=== PATIENT | male | born 1950 | race Caucasian/White ===

== ENCOUNTER 2016-11-07 17:29 | Emergency (ER) | payer MEDICARE, BC ==
[~2016-11-07] VITALS: Ht 175.3 cm; Wt 86.2 kg
[~2016-11-07 17:29] MED LIST: ALFU10TA10 PO; ALLO100T PO; AMIO200T2 PO; ATOR10TA PO; BENA20TA2 PO; CARV25TA2 PO; CENTRUM SILVER PO; DIGOXIN PO; FURO-151 PO; GLIM1TAB3 PO; HYDR-4077 PO; ISOS30TA47 PO; KLOR-CON PO; MONT10TA22 PO; RIVA15TA PO
--- NOTE | 2016-11-07 18:55 | NUR ---
pt refused blood draw, notified
[2016-11-07] MEDS ORDERED: diphenhydrAMINE 50 MG CAPSULE PO ONE (19:00)
[2016-11-07] MEDS ORDERED: diphenhydrAMINE 50 MG CAPSULE ONE (19:03)
[2016-11-07] MEDS ORDERED: predniSONE 20 MG TABLET PO ONE (20:15)
[2016-11-07] MEDS ORDERED: CEPHALEXIN MONOHYDRATE 500 MG CAPSULE PO ONE (20:15)
[2016-11-07] MEDS ORDERED: CEPHALEXIN MONOHYDRATE 500 MG CAPSULE ONE (20:28)
[2016-11-07] MEDS ORDERED: predniSONE 50 MG TABLET ONE (20:28)
[2016-11-07] MEDS ORDERED: predniSONE 10 MG TABLET ONE (20:28)
--- NOTE | 2016-11-07 20:31 | NUR ---
Patient discharged to home in stable conditon. Written and verbal after care instructions given. Patient verbalizes understanding of instructions.
== END 2016-11-07 20:33 | disposition home or self-care (01) ==
LOC: ER 17:29
DX: L03.116 Cellulitis of left lower limb (principal); L30.8 Other specified dermatitis; I50.9 Heart failure, unspecified; I10 Essential (primary) hypertension; I48.91 Unspecified atrial fibrillation; J44.9 Chronic obstructive pulmonary disease, unspecified; M19.90 Unspecified osteoarthritis, unspecified site; Z79.01 Long term (current) use of anticoagulants
CPT/HCPCS: 93971; 99284; A4663; J7512 ×2; Q0163

== ENCOUNTER 2019-03-29 15:44 | Inpatient (IN) | payer MEDICARE, BC ==
[~2019-03-29] VITALS: Ht 175.3 cm; Wt 94.3 kg
[~2019-03-29 15:44] MED LIST changes: -AMIO200T2 PO; +AMIO200T4 PO; -BENA20TA2 PO; +BENA20TA9 PO; -ISOS30TA47 PO
[2019-03-29] MEDS ORDERED: DULA1.5P SQ (16:12)
[2019-03-29] MEDS ORDERED: INSU300I SQ (16:12)
[2019-03-29] MEDS ORDERED: VANCOMYCIN IV 1,000 MG in IV DEXTROSE 5% 250 ML IV ONE (16:15)
--- NOTE | 2019-03-29 16:18 | NUR ---
NURSING DIRECTOR OF SALES AND MARKETING DAE WAS CALLED TO ARRANGE MIDDLE LINE INSERTION. KEANU IS 1 HOUR.
[2019-03-29 16:41] LABS: BASOPHILS % (AUTO) 0.3 % (0.0-2.0); EOSINOPHILS # (AUTO) 0.1 K/uL (0.0-0.7); HEMATOCRIT 27.7 % (36.7-47.1); LYMPHOCYTES # (AUTO) 0.3 K/uL (20.0-40.0); LYMPHOCYTES % (AUTO) 6.7 % (20.5-51.5); MEAN CORPUSCULAR HEMOGLOBIN 27.8 uug (23.8-33.4); MEAN CORPUSCULAR HGB CONC 32 g/dL (32.5-36.3); MEAN CORPUSCULAR VOLUME 85.7 fL (73.0-96.2); MONOCYTES # (AUTO) 0.3 K/uL (2.0-10.0); MONOCYTES % (AUTO) 6.9 % (0.0-11.0); NEUTROPHILS # (AUTO) 3.7 K/uL (1.8-8.9); NEUTROPHILS % (AUTO) 84.1 % (38.5-71.5); PLATELET COUNT (AUTO) 132 K/uL (152-348); RED BLOOD CELL COUNT(AUTO) 3.24 MIL/uL (4.06-5.63); WHITE BLOOD COUNT (AUTO) 4.4 K/uL (3.6-10.2)
--- NOTE | 2019-03-29 16:47 | NUR ---
PT IS IN ROOM #2B. DR NAVAS EVALUATED THE PT.
[2019-03-29 16:49] LABS: CREATININE 2.3 mg/dL (0.6-1.3); POTASSIUM 4.7 mmol/L (3.5-5.1)
[2019-03-29 17:02] LABS: BILIRUBIN,DIRECT 0.1 mg/dL (0.0-0.2); BILIRUBIN,TOTAL 0.1 mg/dL (0.2-1.0); TOTAL PROTEIN, SERUM 4.2 g/dL (6.4-8.2)
[2019-03-29] MEDS ORDERED: VANCOMYCIN IV 200 ML ONE (18:30)
--- NOTE | 2019-03-29 18:37 | NUR ---
PT WAS TRANSFERED TO TELEMETRY ROOM #302. REPORT WAS GIVEN TO SALESPERSON DRIVER.
[2019-03-29] MEDS ORDERED: DIGOXIN 0.125 MG PO SCH (18:45)
[2019-03-29 19:00] VITALS: BP 114/49
--- NOTE | 2019-03-29 19:00 | NUR ---
PATIENT RECEIVED FROM ED BY MICHAEL TO ROOM 302 WITH DX OF CHF HE IS ALERT AND ORIENTED DENIES PAIN OR DISCOMFORTS AT THIS TIME O2 SAT ON ROOM AIR IS 97 PERCENT.HE HAS A MID LINE GAUGE 18 WITH VANCOMICIN INFUSING FROM THE ED WITH NO S/S OF INFILTERATION ON SITE BILATERAL LOWER EXT SWOLLEN ENCOURAGED TO ELEVATE ON THE PILLOW PATIENT PLACED ON TELE HAS A PACEMAKER PATIENT ORIENTED TO ROOM AND HOSPITAL PROTOCOL WILL ENDORSE ADMISSION TO THE NEXT SHIFT.
--- NOTE | 2019-03-29 19:30 | NUR ---
Patient was seen and examined by Dr. Kowalski.
--- NOTE | 2019-03-29 19:30 | NUR ---
Patient arrived on unit at 1900. Dx: CHF. Patient is A/Ox4. Patient is ambulatory. Belonging list and belongings brought with patient Midline on the JUDD is intact and patent. No signs of acute distress noted. No complaints of pain or SOB. Vitals WNL. Safety measures initiated, bed is low and locked, call light within reach. Will continue with the admission process.
[2019-03-29] MEDS ORDERED: IPRATROPIUM BROMIDE 0.5 MG/2.5 ML NEBU NEB PRN (19:45)
[2019-03-29] MEDS ORDERED: ACETAMINOPHEN 325 MG TABLET PO PRN (19:45)
[2019-03-29] MEDS ORDERED: ALBUTEROL SULFATE 2.5 MG/3 ML NEBU NEB PRN (19:45)
[2019-03-29] MEDS ORDERED: MORPHINE SULFATE 2 MG/1 ML DISP.SYRIN IV PRN (19:45)
[2019-03-29] MEDS ORDERED: ONDANSETRON 4 MG/2 ML VIAL IV PRN (19:45)
[2019-03-29] MEDS ORDERED: BUMETANIDE 1 MG/4 ML VIAL IV SCH (21:00)
[2019-03-29] MEDS: DOCUSATE SODIUM 100 MG CAPSULE PO SCH (21:10)
[2019-03-29] MEDS: ATORVASTATIN 10 MG TABLET PO SCH (21:10)
[2019-03-29] MEDS: ALFUZOSIN HCL 10 MG TAB.SR.24H PO SCH (22:13)
[2019-03-29] MEDS ORDERED: ALFUZOSIN HCL 10 MG TAB.SR.24H PO ONE (22:13)
[2019-03-30 03:48] LABS: *BILIRUBIN,URIN NEGATIVE (NEGATIVE); *BLOOD, URINE NEGATIVE (NEGATIVE); *CLARITY,URINE CLEAR (CLEAR); *COLOR,URINE YELLOW (YELLOW); *KETONES,URINE NEGATIVE (NEGATIVE); *UROBILINOGEN,URINE 0.2 E.U./dl (NORMAL); LEUKOCYTE ESTERASE ,URINE NEGATIVE (NEGATIVE); NITRITE, URINE NEGATIVE (NEGATIVE); UGLUCOSE NEGATIVE (NEGATIVE)
[2019-03-30 04:00] VITALS: BP 98/78
[2019-03-30] MEDS: PANTOPRAZOLE SODIUM 40 MG TABLET.DR PO SCH (06:35)
[2019-03-30 06:45] LABS: BASOPHILS % (AUTO) 0.6 % (0.0-2.0); EOSINOPHILS # (AUTO) 0.1 K/uL (0.0-0.7); EOSINOPHILS % (AUTO) 1.9 % (0.0-7.0); HEMATOCRIT 28.8 % (36.7-47.1); HEMOGLOBIN 9.6 g/dL (12.5-16.3); LYMPHOCYTES # (AUTO) 0.3 K/uL (20.0-40.0); LYMPHOCYTES % (AUTO) 6.6 % (20.5-51.5); MEAN CORPUSCULAR HGB CONC 33 g/dL (32.5-36.3); MEAN CORPUSCULAR VOLUME 84.4 fL (73.0-96.2); MONOCYTES # (AUTO) 0.3 K/uL (2.0-10.0); MONOCYTES % (AUTO) 6.4 % (0.0-11.0); NEUTROPHILS # (AUTO) 4.1 K/uL (1.8-8.9); NEUTROPHILS % (AUTO) 84.5 % (38.5-71.5); PLATELET COUNT (AUTO) 145 K/uL (152-348); RED BLOOD CELL COUNT(AUTO) 3.41 MIL/uL (4.06-5.63); WHITE BLOOD COUNT (AUTO) 4.9 K/uL (3.6-10.2)
[2019-03-30 07:25] LABS: BILIRUBIN,TOTAL 0.2 mg/dL (0.2-1.0); CREATININE 2.3 mg/dL (0.6-1.3); MAGNESIUM 1.8 mg/dL (1.8-2.4); PHOSPHOROUS 4.1 mg/dL (2.5-4.9); POTASSIUM 3.7 mmol/L (3.5-5.1); TOTAL PROTEIN, SERUM 4.5 g/dL (6.4-8.2)
--- NOTE | 2019-03-30 07:25 | NUR ---
DR IRENE HERE TO SEE PATIENT WITH NEW ORDERS AND NOTED PQATIENT OIS ALERT AND ORTIENTED DENIES PAIN OR DISCOMFORTS HE IS ON ROOM SERENA WITH NO SOB STATED LONG HE IS SITTING UP AND NOT LAYING DOWN HE IS FINE RESPIRATORY COLMENARES MID LINE RIGHT ARM REMAIN INTACT CALL LIGHTS AND PERSONAL BELONGINGS PLACED WITHIN EASY REACH WILL CONTINUE TO OBSERVE.
[2019-03-30 07:40] LABS: THYROID STIMULATING HORMONE 5.838 mIU/mL (0.358-3.740)
--- NOTE | 2019-03-30 07:44 | NUR ---
DR BERUMEN HERE TO SEE PATIENT STATED WILL ORDER THORACENTESIS FOR THE PATIENT RELATED TO PLEURAL EFFUSSION AWAITNG FOR RADIOLOGY INPUT.
[2019-03-30] MEDS ORDERED: LACTULOSE 20 G/30 ML LIQUID UDC PO ONE (07:45)
[2019-03-30 08:08] LABS: URIC ACID 5.3 mg/dL (3.5-7.2)
[2019-03-30] MEDS: METOLAZONE 2.5 MG TABLET PO SCH (08:28)
[2019-03-30] MEDS: BUMETANIDE 1 MG/4 ML VIAL IV SCH ×3 (08:28→21:35)
[2019-03-30] MEDS: GLIMEPIRIDE 2 MG TABLET PO SCH (08:29)
[2019-03-30] MEDS: AMIODARONE HCL 200 MG TABLET PO SCH (08:29)
[2019-03-30] MEDS: CARVEDILOL 25 MG TABLET PO SCH ×2 (08:29→17:02)
[2019-03-30] MEDS: DIGOXIN 125 MCG TABLET PO SCH (08:30)
[2019-03-30] MEDS ORDERED: METOLAZONE 5 MG TABLET PO SCH ×2 (09:00)
[2019-03-30] MEDS ORDERED: RIVAROXABAN 10 MG TABLET PO SCH ×2 (09:00)
[2019-03-30] MEDS ORDERED: RIVAROXABAN 15 MG TABLET PO SCH ×2 (09:00→18:00)
[2019-03-30] MEDS: PROTEIN SUPPLEMENT (PROSTAT) 30 ML LIQUID PO SCH ×3 (10:28→17:01)
--- NOTE | 2019-03-30 11:00 | NUR ---
PATIENT SEEN AND EXAMINED BY HECTOR PATIENT HAD ALREADY SIGNED CONSCENT FOR THE THORACENTESIS BUT ANSELMO BOCANEGRA STATED THAT SINCE PATIENT TOOK XARELTO YESTERDAY,HE HAS TENDENCY TO BLEED SHOULD WAIT FOR AT LEAST TOMORROW ULTRASOUND MABLE AND PATIENT AWARE
[2019-03-30 11:02] VITALS: BP 119/65
--- NOTE | 2019-03-30 11:28 | NUR ---
PATIENT SEEN AND EXAMINED BY DR BRAYDON WILSON WITH NEW ORDERS AND NOTED.
[2019-03-30 14:29] LABS: *BILIRUBIN,URIN NEGATIVE (NEGATIVE); *BLOOD, URINE NEGATIVE (NEGATIVE); *CLARITY,URINE CLEAR (CLEAR); *COLOR,URINE LIGHT YELLOW (YELLOW); *KETONES,URINE NEGATIVE (NEGATIVE); *UROBILINOGEN,URINE 0.2 E.U./dl (NORMAL); LEUKOCYTE ESTERASE ,URINE NEGATIVE (NEGATIVE); NITRITE, URINE NEGATIVE (NEGATIVE); PH,URINE 6.5 (5.0-8.0); UGLUCOSE NEGATIVE (NEGATIVE)
[2019-03-30 15:06] LABS: *CREATININE,URINE 14.8 mg/dL (30-125); *URINE TOTAL PROTEIN RANDOM < 6.0 mg/dL (<150/24HR)
[2019-03-30 15:09] VITALS: BP 122/48
--- NOTE | 2019-03-30 17:00 | NUR ---
PER MABLE THE ULTRA SOUND TECH THORACENTESIS WILL BE DONE TOMORROW AT 1100 SO STATED WILL CONFIRM WITH HECTOR BOCANEGRA TOMORROW PRIOR TO PROCEDURE BEING DONE.
[2019-03-30] MEDS: MONTELUKAST SODIUM 10 MG TABLET PO SCH (17:02)
--- NOTE | 2019-03-30 19:30 | NUR ---
RECEIVED REPORT FROM OUTGOING NURSE AT BEDSIDE. PT IS AWAKE, ALERT AND FULLY ORIENTED. VERBALLY RESPONSIVE. PT IS WITH GUEST AT BEDSIDE AND IS IN GOOD SPIRITS. MILD SWELLING ON BILATERAL LOWER EXTREMITIES STILL NOTED. ALL BLOOD THINNERS REMAIN HELD AT THIS TIME D/T POSSIBLE THORACENTESIS IN THE MORNING. PATIENT IS AWARE. CRACKLES HEARD UPON AUSCULTATION, MORE PROMINENTLY ON THE R LUNG. DENIES ANY PAIN OR DISCOMFORT. BREATHING IS EVEN AND UNLABORED, NOT IN ANY ACUTE DISTRESS ON ROOM AIR. PT IS AMBULATORY, REINFORCED FALL PRECAUTIONS. WILL CONTINUE ON TELE MONITORING, REMAINS ON SINUS RHYTHM.
[2019-03-30] MEDS: ATORVASTATIN 10 MG TABLET PO SCH (20:19)
[2019-03-30] MEDS: ALFUZOSIN HCL 10 MG TAB.SR.24H PO SCH (20:19)
[2019-03-30] MEDS: DOCUSATE SODIUM 100 MG CAPSULE PO SCH (20:20)
[2019-03-30 20:45] VITALS: BP 152/50
[2019-03-31 00:30] VITALS: BP 142/54
[2019-03-31 04:03] VITALS: BP 128/78
[2019-03-31 04:39] LABS: *BILIRUBIN,URIN NEGATIVE (NEGATIVE); *BLOOD, URINE NEGATIVE (NEGATIVE); *CLARITY,URINE CLEAR (CLEAR); *COLOR,URINE YELLOW (YELLOW); *KETONES,URINE NEGATIVE (NEGATIVE); *UROBILINOGEN,URINE 0.2 E.U./dl (NORMAL); LEUKOCYTE ESTERASE ,URINE NEGATIVE (NEGATIVE); NITRITE, URINE NEGATIVE (NEGATIVE); PH,URINE 6.5 (5.0-8.0); UGLUCOSE NEGATIVE (NEGATIVE)
[2019-03-31 04:45] LABS: *CREATININE,URINE 38.8 mg/dL (30-125); *URINE TOTAL PROTEIN RANDOM < 6.0 mg/dL (<150/24HR)
[2019-03-31] MEDS: BUMETANIDE 1 MG/4 ML VIAL IV SCH ×3 (05:16→21:06)
--- NOTE | 2019-03-31 06:01 | NUR ---
PATIENT INTERMITTENTLY ASLEEP DURING SHIFT. WITH ONE EPISODE OF HEADACHE HE RATED 3/10 WITH TYLENOL 650 MG GIVEN AND EFFECTIVE. WITH 1200 CC URINE OUTPUT SINCE MIDNIGHT, DAILY WEIGHT MEASURED AT 215 LBS. PATIENT VERBALIZED FEELING BETTER NOW THAT FLUID IS "LEAVING HIS BODY". STRICT I&O DONE AND RECORDED. NO SIGNS OF ACUTE DISTRESS THROUGHOUT ENTIRE SHIFT. MAINTAINED SINUS RHYTHM ON TELE. WILL CONTINUE TO MONITOR.
[2019-03-31] MEDS: PANTOPRAZOLE SODIUM 40 MG TABLET.DR PO SCH (06:20)
[2019-03-31 07:15] LABS: BASOPHILS % (AUTO) 0.4 % (0.0-2.0); EOSINOPHILS # (AUTO) 0.1 K/uL (0.0-0.7); EOSINOPHILS % (AUTO) 2.2 % (0.0-7.0); HEMATOCRIT 27.6 % (36.7-47.1); HEMOGLOBIN 9.2 g/dL (12.5-16.3); LYMPHOCYTES # (AUTO) 0.3 K/uL (20.0-40.0); LYMPHOCYTES % (AUTO) 7.3 % (20.5-51.5); MEAN CORPUSCULAR HEMOGLOBIN 27.8 uug (23.8-33.4); MEAN CORPUSCULAR HGB CONC 33 g/dL (32.5-36.3); MEAN CORPUSCULAR VOLUME 83.3 fL (73.0-96.2); MONOCYTES # (AUTO) 0.3 K/uL (2.0-10.0); MONOCYTES % (AUTO) 7.6 % (0.0-11.0); NEUTROPHILS # (AUTO) 3.7 K/uL (1.8-8.9); NEUTROPHILS % (AUTO) 82.5 % (38.5-71.5); PLATELET COUNT (AUTO) 140 K/uL (152-348); RED BLOOD CELL COUNT(AUTO) 3.32 MIL/uL (4.06-5.63); WHITE BLOOD COUNT (AUTO) 4.5 K/uL (3.6-10.2)
[2019-03-31 07:17] LABS: BILIRUBIN,TOTAL 0.3 mg/dL (0.2-1.0); CREATININE 2.4 mg/dL (0.6-1.3); MAGNESIUM 1.7 mg/dL (1.8-2.4); PHOSPHOROUS 4.7 mg/dL (2.5-4.9); POTASSIUM 3.2 mmol/L (3.5-5.1); TOTAL PROTEIN, SERUM 4.5 g/dL (6.4-8.2)
--- NOTE | 2019-03-31 08:00 | NUR ---
Pt alert and oriented x 4. Discussed plan with patient regarding limiting fluid intake to prevent further congestion and to use urinal for accurate I/O. Pt has diminished lung sounds on right lobe. Pt agreeable with plan of care. Call light is within reach.
[2019-03-31] MEDS: METOLAZONE 2.5 MG TABLET PO SCH (08:51)
[2019-03-31] MEDS: GLIMEPIRIDE 2 MG TABLET PO SCH (08:52)
[2019-03-31] MEDS: AMIODARONE HCL 200 MG TABLET PO SCH (08:52)
[2019-03-31] MEDS: CARVEDILOL 25 MG TABLET PO SCH ×2 (08:53→17:07)
[2019-03-31] MEDS: PROTEIN SUPPLEMENT (PROSTAT) 30 ML LIQUID PO SCH ×3 (08:53→17:08)
[2019-03-31] MEDS ORDERED: POTASSIUM CHLORIDE 20 MEQ TAB.PRT.SR PO ONE (11:00)
[2019-03-31 11:14] VITALS: BP 125/54
--- NOTE | 2019-03-31 12:30 | NUR ---
Pt tolerated right thoracentesis > 1500cc out. Band aid applied on right back will monitor for bleeding.
[2019-03-31] MEDS: MAGNESIUM SULFATE/D5W 100 ML IV SCH ×2 (13:52→15:59)
[2019-03-31] MEDS ORDERED: MAGNESIUM HYDROXIDE 30 ML LIQUID UDC PO PRN (15:15)
[2019-03-31 15:25] VITALS: BP 113/42
[2019-03-31] MEDS: MONTELUKAST SODIUM 10 MG TABLET PO SCH (17:07)
--- NOTE | 2019-03-31 18:30 | NUR ---
Pt is in no acute distress. Pt denies any sob. Right thoracentesis site has no bleeding noted. Call light is within reach.
--- NOTE | 2019-03-31 19:00 | NUR ---
PATIENT RECEIVED ALERT AND SLEEPING USING CPAP MACHINE, PATIENT MIDLINE IS INTACT AND PATENT. VERY COOPERATIVE AND PLEASANT. NO COMPLAINTS OF SOB , PAIN , CHEST PAIN. CALL LIGHT WITHIN REACH, WILL CONTINUE TO MONITOR.
[2019-03-31 20:00] VITALS: BP 122/49
[2019-03-31] MEDS: DOCUSATE SODIUM 100 MG CAPSULE PO SCH (20:56)
[2019-03-31] MEDS: ATORVASTATIN 10 MG TABLET PO SCH (20:56)
[2019-03-31] MEDS: ALFUZOSIN HCL 10 MG TAB.SR.24H PO SCH (20:56)
[2019-04-01] VITALS: BP 149/59
[2019-04-01 04:00] VITALS: BP 100/40
[2019-04-01] MEDS: BUMETANIDE 1 MG/4 ML VIAL IV SCH ×3 (06:01→21:12)
[2019-04-01] MEDS: PANTOPRAZOLE SODIUM 40 MG TABLET.DR PO SCH (06:04)
--- NOTE | 2019-04-01 07:20 | NUR ---
Patient received on bed, asleep, no acute distress noted. on tele AV pacing. AAOx4 no SOB noted at this time. comfort measures provided. call light within reach. will continue to monitor closely.
--- NOTE | 2019-04-01 07:35 | NUR ---
PATIENT SLEPT INTERMITENTLY WITH CPAP MACHINE, PATIENT MIDLINE IS INTACT AND PATENT. NO COMPLAINTS OF SOB , PAIN , CHEST PAIN. MANAGER MEDICAL WRITING INTACT, WITH PACEMAKER, PACING NORMAL SINUS WITH 62 HR CALL LIGHT WITHIN REACH, WILL CONTINUE TO MONITOR. ENDORSED TO AM SHIFT.
[2019-04-01] MEDS: PROTEIN SUPPLEMENT (PROSTAT) 30 ML LIQUID PO SCH ×3 (08:00→17:00)
[2019-04-01] MEDS: CARVEDILOL 25 MG TABLET PO SCH ×2 (08:00→17:41)
[2019-04-01 08:06] LABS: ALPHA-1-GLOBULIN 0.2 g/dL (0.0-0.4); ALPHA-2-GLOBULIN 0.6 g/dL (0.4-1.0); BETA GLOBULIN 0.7 g/dL (0.7-1.3); GAMMA GLOBULIN 0.4 g/dL (0.4-1.8); M-SPIKE Not Observed g/dL (Not Observed)
[2019-04-01] MEDS: GLIMEPIRIDE 2 MG TABLET PO SCH (08:53)
[2019-04-01] MEDS: METOLAZONE 2.5 MG TABLET PO SCH (08:53)
[2019-04-01] MEDS: DIGOXIN 125 MCG TABLET PO SCH (08:54)
[2019-04-01] MEDS: AMIODARONE HCL 200 MG TABLET PO SCH (09:00)
[2019-04-01 09:55] LABS: BASOPHILS % (AUTO) 0.6 % (0.0-2.0); EOSINOPHILS # (AUTO) 0.1 K/uL (0.0-0.7); EOSINOPHILS % (AUTO) 1.7 % (0.0-7.0); HEMATOCRIT 28.1 % (36.7-47.1); HEMOGLOBIN 9.1 g/dL (12.5-16.3); LYMPHOCYTES # (AUTO) 0.2 K/uL (20.0-40.0); LYMPHOCYTES % (AUTO) 5.4 % (20.5-51.5); MEAN CORPUSCULAR HEMOGLOBIN 27.4 uug (23.8-33.4); MEAN CORPUSCULAR HGB CONC 32 g/dL (32.5-36.3); MEAN CORPUSCULAR VOLUME 85.3 fL (73.0-96.2); MONOCYTES # (AUTO) 0.3 K/uL (2.0-10.0); MONOCYTES % (AUTO) 6.4 % (0.0-11.0); NEUTROPHILS # (AUTO) 3.9 K/uL (1.8-8.9); NEUTROPHILS % (AUTO) 85.9 % (38.5-71.5); PLATELET COUNT (AUTO) 121 K/uL (152-348); WHITE BLOOD COUNT (AUTO) 4.6 K/uL (3.6-10.2)
--- NOTE | 2019-04-01 09:59 | NUR ---
PATIENT'S HR 57, HELD AMIODARONE 200MG. PT. IN STABLE CONDITION. WILL CONTINUE TO MONITOR CLOSELY.
[2019-04-01 10:04] LABS: CREATININE 2.4 mg/dL (0.6-1.3); POTASSIUM 3.3 mmol/L (3.5-5.1)
[2019-04-01 11:19] VITALS: BP 119/43
[2019-04-01 12:08] VITALS: BP 120/58
[2019-04-01] MEDS: SPIRONOLACTONE 25 MG TABLET PO SCH (12:11)
[2019-04-01] MEDS ORDERED: POTASSIUM CHLORIDE 20 MEQ POWDER PACKET PO ONE (14:45)
[2019-04-01 15:06] VITALS: BP 123/52
[2019-04-01] MEDS: MONTELUKAST SODIUM 10 MG TABLET PO SCH (17:37)
[2019-04-01] MEDS ORDERED: RIVAROXABAN 15 MG TABLET PO SCH (18:00)
[2019-04-01 20:00] VITALS: BP 124/59
[2019-04-01] MEDS: DOCUSATE SODIUM 100 MG CAPSULE PO SCH (21:11)
[2019-04-01] MEDS: ALFUZOSIN HCL 10 MG TAB.SR.24H PO SCH (21:11)
[2019-04-01] MEDS: ATORVASTATIN 10 MG TABLET PO SCH (21:11)
[2019-04-02] VITALS: BP 105/44
[2019-04-02 04:00] VITALS: BP 131/61
--- NOTE | 2019-04-02 05:21 | NUR ---
Patient rested well in between care; no acute distress; needs attended;on own cpap; made comfortable. continue plan of care; continue to monitor.
[2019-04-02 06:35] LABS: BASOPHILS % (AUTO) 0.6 % (0.0-2.0); EOSINOPHILS # (AUTO) 0.1 K/uL (0.0-0.7); EOSINOPHILS % (AUTO) 1.7 % (0.0-7.0); HEMATOCRIT 28.4 % (36.7-47.1); HEMOGLOBIN 9.1 g/dL (12.5-16.3); LYMPHOCYTES # (AUTO) 0.3 K/uL (20.0-40.0); LYMPHOCYTES % (AUTO) 7.1 % (20.5-51.5); MEAN CORPUSCULAR HEMOGLOBIN 28.1 uug (23.8-33.4); MEAN CORPUSCULAR HGB CONC 32 g/dL (32.5-36.3); MEAN CORPUSCULAR VOLUME 87.2 fL (73.0-96.2); MONOCYTES # (AUTO) 0.3 K/uL (2.0-10.0); MONOCYTES % (AUTO) 7.6 % (0.0-11.0); NEUTROPHILS # (AUTO) 3.8 K/uL (1.8-8.9); PLATELET COUNT (AUTO) 123 K/uL (152-348); RED BLOOD CELL COUNT(AUTO) 3.25 MIL/uL (4.06-5.63); WHITE BLOOD COUNT (AUTO) 4.6 K/uL (3.6-10.2)
[2019-04-02 06:43] LABS: CREATININE 2.4 mg/dL (0.6-1.3); POTASSIUM 3.7 mmol/L (3.5-5.1)
[2019-04-02] MEDS: PANTOPRAZOLE SODIUM 40 MG TABLET.DR PO SCH (06:50)
--- NOTE | 2019-04-02 08:00 | NUR ---
seen by manager ambulatory and hospitalist, d plan dc today with home health
[2019-04-02] MEDS: GLIMEPIRIDE 2 MG TABLET PO SCH (08:10)
[2019-04-02] MEDS: METOLAZONE 2.5 MG TABLET PO SCH (08:10)
[2019-04-02] MEDS: AMIODARONE HCL 200 MG TABLET PO SCH (08:12)
[2019-04-02 08:13] VITALS: BP 127/50
[2019-04-02] MEDS: PROTEIN SUPPLEMENT (PROSTAT) 30 ML LIQUID PO SCH (08:13)
[2019-04-02] MEDS: SPIRONOLACTONE 25 MG TABLET PO SCH (08:13)
[2019-04-02] MEDS: CARVEDILOL 25 MG TABLET PO SCH (08:13)
[2019-04-02] MEDS ORDERED: FUROSEMIDE 40 MG TABLET PO SCH (09:00)
[2019-04-02] MEDS ORDERED: Metolazone PO (09:29)
[2019-04-02] MEDS ORDERED: FURO40TA5 PO (09:29)
--- NOTE | 2019-04-02 10:13 | NUR ---
discharged home with home health via private car accompanied by . RX AND follow-up instruction given
== END 2019-04-02 10:20 | disposition home health service (06) | DRG 291 ==
LOC: ER 15:44 → TELE3 18:21
PROVIDERS: ADMIT Internal Medicine; ATTEND Internal Medicine
PROC: 05H933Z Insertion of Infusion Device into Right Brachial Vein, Percutaneous Approach (ICD-10-PCS; principal; 2019-03-29)
PROC: 0W993ZX Drainage of Right Pleural Cavity, Percutaneous Approach, Diagnostic (ICD-10-PCS; 2019-03-31)
DX: I13.0 Hypertensive heart and chronic kidney disease with heart failure and stage 1 through stage 4 chronic kidney disease, or unspecified chronic kidney disease (principal); I50.23 Acute on chronic systolic (congestive) heart failure; E43 Unspecified severe protein-calorie malnutrition; J91.8 Pleural effusion in other conditions classified elsewhere; J96.11 Chronic respiratory failure with hypoxia; D68.59 Other primary thrombophilia; J98.11 Atelectasis; R18.8 Other ascites; E87.0 Hyperosmolality and hypernatremia; E66.2 Morbid (severe) obesity with alveolar hypoventilation; E11.22 Type 2 diabetes mellitus with diabetic chronic kidney disease; N18.9 Chronic kidney disease, unspecified; I48.0 Paroxysmal atrial fibrillation; I27.20 Pulmonary hypertension, unspecified; I42.9 Cardiomyopathy, unspecified; I87.303 Chronic venous hypertension (idiopathic) without complications of bilateral lower extremity; J44.9 Chronic obstructive pulmonary disease, unspecified; M10.9 Gout, unspecified; K80.20 Calculus of gallbladder without cholecystitis without obstruction; I87.2 Venous insufficiency (chronic) (peripheral); E11.42 Type 2 diabetes mellitus with diabetic polyneuropathy; Z68.30 Body mass index [BMI] 30.0-30.9, adult; Z91.11 Patient's noncompliance with dietary regimen; Z86.74 Personal history of sudden cardiac arrest; Z87.891 Personal history of nicotine dependence; Z95.810 Presence of automatic (implantable) cardiac defibrillator; D69.6 Thrombocytopenia, unspecified; D63.8 Anemia in other chronic diseases classified elsewhere; M19.90 Unspecified osteoarthritis, unspecified site; N50.89 Other specified disorders of the male genital organs; Z79.01 Long term (current) use of anticoagulants; Z79.4 Long term (current) use of insulin; N40.1 Benign prostatic hyperplasia with lower urinary tract symptoms; M89.8X9 Other specified disorders of bone, unspecified site; Z79.899 Other long term (current) drug therapy; I25.10 Atherosclerotic heart disease of native coronary artery without angina pectoris; E87.6 Hypokalemia; E78.5 Hyperlipidemia, unspecified
CPT/HCPCS: 32555; 36415; 70030-TC; 71045; 71250; 83550; 83615; 83735; 83970; 83986; 84100; 84155; 84156; 84165; 84300; 84443; 84550; 85025; 85610; 85730; 87070; 87205; 93005; 93307; A4217; A4663; G0378; J3370; J3475; J3490; J8499

== ENCOUNTER 2019-08-23 09:44 | Inpatient (IN) | payer BC, MEDICARE ==
[~2019-08-23] VITALS: Ht 175.3 cm; Wt 90.7 kg
[~2019-08-23 09:44] MED LIST changes: -BENA20TA9 PO; +DULA1.5P SQ; -FURO-151 PO; +FURO40TA5 PO; +GLIM1TAB18 PO; -GLIM1TAB3 PO; -HYDR-4077 PO; +INSU300I SQ; +Metolazone PO
--- NOTE | 2019-08-23 10:15 | NUR ---
Dr Mackay at the bedside for MSE.
[2019-08-23] MEDS ORDERED: PIPERACILLIN SODIUM/TAZOBACTAM 3.375 G in IV DEXTROSE 5% 50 ML IV ONE (11:30)
[2019-08-23] MEDS ORDERED: PIPERACILLIN/TAZOBACTAM/D5W 50 ML IV ONE (11:42)
[2019-08-23 11:58] LABS: CARBON DIOXIDE 34 mmol/L (21-32); CHLORIDE 105 mmol/L (98-107); CREATININE 2.3 mg/dL (0.6-1.3); GLUCOSE 103 mg/dL (74-106); POTASSIUM 3.2 mmol/L (3.5-5.1)
[2019-08-23 12:02] LABS: UREA NITROGEN, BLOOD 81 mg/dL (7-18)
[2019-08-23 12:06] LABS: BASOPHILS # (AUTO) 0.1 K/uL (0.0-8.0); BASOPHILS % (AUTO) 0.9 % (0.0-2.0); EOSINOPHILS # (AUTO) 0.1 K/uL (0.0-0.7); EOSINOPHILS % (AUTO) 2.1 % (0.0-7.0); HEMATOCRIT 31.5 % (36.7-47.1); HEMOGLOBIN 10.2 g/dL (12.5-16.3); LYMPHOCYTES # (AUTO) 0.4 K/uL (20.0-40.0); MEAN CORPUSCULAR HEMOGLOBIN 26.8 uug (23.8-33.4); MEAN CORPUSCULAR HGB CONC 32 g/dL (32.5-36.3); MONOCYTES # (AUTO) 0.5 K/uL (2.0-10.0); MONOCYTES % (AUTO) 7.6 % (0.0-11.0); NEUTROPHILS # (AUTO) 5.6 K/uL (1.8-8.9); NEUTROPHILS % (AUTO) 83.4 % (38.5-71.5); PLATELET COUNT (AUTO) 180 K/uL (152-348); WHITE BLOOD COUNT (AUTO) 6.7 K/uL (3.6-10.2)
[2019-08-23 12:10] LABS: ALANINE AMINOTRANSFERASE 16 U/L (16-63); ALKALINE PHOSPHATASE 102 U/L (50-136); ASPARTATE AMINOTRANSFERASE 24 U/L (15-37); BILIRUBIN,DIRECT 0.1 mg/dL (0.0-0.2); BILIRUBIN,TOTAL 0.3 mg/dL (0.2-1.0); TOTAL PROTEIN, SERUM 5.2 g/dL (6.4-8.2)
--- NOTE | 2019-08-23 12:28 | NUR ---
ER spoke to admiting MD, Dr Green for TELE admit.
--- NOTE | 2019-08-23 12:54 | NUR ---
Lunch tray provided, pt ate w/ great appetite.
[2019-08-23] MEDS ORDERED: diphenhydrAMINE 50 MG/1 ML VIAL IV ONE (13:00)
[2019-08-23] MEDS ORDERED: diphenhydrAMINE 50 MG/1 ML VIAL ONE (13:05)
--- NOTE | 2019-08-23 13:37 | NUR ---
Patient is resting comfortably in bed with eyes closed, NAD noted.
--- NOTE | 2019-08-23 14:14 | NUR ---
Asked patient several times to please provide up-to-date medication list. He himself does not know which medications he is taking. He insisted he would have his send them to him and he would relay to me. I followed up with him an hour later; patient sternly stated he'd let me know when he has the information. No information provided.
--- NOTE | 2019-08-23 15:21 | NUR ---
LIST OF MEDICATIONS RECONCILED WITH PATIENT BEST HE KNOWS. PT STATED HIS WILL BE IN LATER TO VERIFY LIST.
[2019-08-23] MEDS ORDERED: FURO40TA5 PO (15:41)
[2019-08-23] MEDS ORDERED: ISOS30TA6 PO (15:41)
[2019-08-23] MEDS ORDERED: FURO80TA3 PO (15:41)
[2019-08-23] MEDS ORDERED: HYDR-4077 PO (15:41)
--- NOTE | 2019-08-23 16:15 | NUR ---
RECEIVED PATIENT 69 YEARS OLD MALE FROM THE ED WITH DX OF PNA PLACED INTO BED FIXED AND MADE COMFORTABLE PATIENT IS ALERT AND ORIENTED DENIES PAIN OR DISCOMFORTS AT THIS TIME ON ROOM AIR WITH NO SHORTNESS OF BREATH AT THIS TIME BOTH EYES ARE RED PATIENT STATED THAT IT IS ITCHY DR MANE NOTIFIED STATED WILL PLACE ORDERS.
[2019-08-23 16:18] VITALS: BP 143/60
[2019-08-23] MEDS ORDERED: MAGNESIUM HYDROXIDE 30 ML LIQUID UDC PO PRN (17:15)
[2019-08-23] MEDS ORDERED: HYDROCODONE/APAP 5-325MG TABLET PO PRN (17:15)
[2019-08-23] MEDS ORDERED: ZOLPIDEM 5 MG TABLET PO PRN (17:15)
[2019-08-23] MEDS ORDERED: ONDANSETRON 4 MG/2 ML VIAL IV PRN (17:15)
[2019-08-23] MEDS ORDERED: ACETAMINOPHEN 325 MG TABLET PO PRN (17:15)
[2019-08-23] MEDS ORDERED: Z GUARD REMEDY PASTE 57 GM TUBE TOP PRN (17:15)
[2019-08-23] MEDS ORDERED: PIPERACILLIN SODIUM/TAZOBACTAM 3.375 G in IV DEXTROSE 5% 50 ML IV SCH (18:00)
--- NOTE | 2019-08-23 18:00 | NUR ---
REMAIN NON IVF AND IV ATB ORDERED WITH NO ADVERSE OR ALLERGIC REACTIONS AT THIS TIME WILL CONTINUE TO OBSERVE.
[2019-08-23] MEDS: IV 1/2NS 1000 ML 1,000 ML IV PRN (18:15)
[2019-08-23] MEDS: PIPERACILLIN/TAZOBACTAM/D5W 3.375 G in IV DEXTROSE 5% 50 ML IV SCH (18:24)
--- NOTE | 2019-08-23 20:00 | NUR ---
RECEIVED PATIENT AWAKE IN BED BED. A/O X4. C/O DISCOMFORT IN BILATERAL EYES, NOTED TO BE RED AND SWOLLEN. WAITING FOR PHARMACY TO BRING UP EYE DROPS, WILL ADMINISTER PER MD ORDER. PATIENT DENIES ANY OTHER PAIN OR DISCOMFORT. NO RESP. DISTRESS NOTED. VSS. IVF INFUSING WELL TO LEFT AC #20 GAUGE AND PATIENT ALSO RECEIVING IV ATB. CALL LIGHT IN REACH. ALL NEEDS ATTENDED. WILL CONTINUE TO MONITOR AND ASSESS.
[2019-08-23] MEDS: prednisoLONE ACET 1% OPHT DROP 5 ML BOTTLE EACHEYE PRN (20:02)
--- NOTE | 2019-08-23 20:05 | NUR ---
PATIENT GIVEN EYE DROPS ORDERED PRN. WILL CONTINUE TO MONITOR.
[2019-08-23 20:29] VITALS: BP 90/63
--- NOTE | 2019-08-23 21:00 | NUR ---
URINE SENT TO LAB FOR UA/CULTURE. WAITING FOR MD TO RECONCILE MEDS. PATIENT STATED, "RELIEF" FROM EYE DROPS, EFFECTIVE. WILL CONTINUE TO MONITOR AND ASSESS.
[2019-08-23 21:13] LABS: *BILIRUBIN,URIN NEGATIVE (NEGATIVE); *BLOOD, URINE NEGATIVE (NEGATIVE); *CLARITY,URINE CLEAR (CLEAR); *COLOR,URINE YELLOW (YELLOW); *KETONES,URINE NEGATIVE (NEGATIVE); *UROBILINOGEN,URINE 0.2 E.U./dl (NORMAL); LEUKOCYTE ESTERASE ,URINE NEGATIVE (NEGATIVE); NITRITE, URINE NEGATIVE (NEGATIVE); UGLUCOSE NEGATIVE (NEGATIVE)
--- NOTE | 2019-08-23 22:00 | NUR ---
PATIENT REFUSED TO WEAR C-PAP.
--- NOTE | 2019-08-23 22:15 | NUR ---
DR. MANE CALLED FOR RECONCILIATION OF HOME MEDS. PATIENT NOTIFIED AND VERBALIZED UNDERSTANDING.
[2019-08-23] MEDS ORDERED: CARVEDILOL 25 MG TABLET PO SCH (23:45)
[2019-08-23] MEDS: ATORVASTATIN 10 MG TABLET PO SCH (23:45)
[2019-08-23] MEDS: POTASSIUM CHLORIDE 20 MEQ TAB.PRT.SR PO SCH (23:45)
[2019-08-23] MEDS: FUROSEMIDE 40 MG TABLET PO SCH (23:45)
[2019-08-23] MEDS: MONTELUKAST SODIUM 10 MG TABLET PO SCH (23:45)
[2019-08-23] MEDS ORDERED: hydrALAZINE HCL 50 MG TABLET PO SCH (23:45)
[2019-08-23] MEDS: ZOLPIDEM 5 MG TABLET PO PRN (23:49)
--- NOTE | 2019-08-24 | NUR ---
PATIENT AWAKE IN BED. REQUESTING FOR SLEEPING PILL. PATIENT GIVEN AMBIEN 5MG PO PRN FOR SLEEP ORDERED. PATIENT INFORMED THAT HOME MEDS WERE RECONCILED, WILL START IN AM. MD AWARE. ALL NEEDS ATTENDED.
[2019-08-24] MEDS ORDERED: INSULIN REGULAR, HUMAN 300 UNITS/3 ML VIAL SQ PRN (00:45)
[2019-08-24] MEDS ORDERED: DEXTROSE 50% 50 ML DISP.SYRIN IV PRN (00:45)
[2019-08-24] MEDS: PIPERACILLIN/TAZOBACTAM/D5W 3.375 G in IV DEXTROSE 5% 50 ML IV SCH ×3 (01:09→17:16)
--- NOTE | 2019-08-24 06:01 | NUR ---
PATIENT AWAKE IN BED. SLEPT AT INTERVALS. DENIES PAIN OR DISCOMFORT. IVF INFUSING WELL ORDERED. VSS. CALL LIGHT IN REACH. ALL NEEDS ATTENDED. WILL CONTINUE TO MONITOR AND ASSESS.
[2019-08-24 06:34] VITALS: BP 121/49
[2019-08-24] MEDS: BLOOD SUGAR DIAGNOSTIC 1 EACH STRIP VI SCH ×4 (06:36→21:04)
[2019-08-24 07:22] LABS: BASOPHILS # (AUTO) 0.1 K/uL (0.0-8.0); BASOPHILS % (AUTO) 1.3 % (0.0-2.0); EOSINOPHILS # (AUTO) 0.2 K/uL (0.0-0.7); EOSINOPHILS % (AUTO) 2.4 % (0.0-7.0); HEMATOCRIT 30.4 % (36.7-47.1); HEMOGLOBIN 9.8 g/dL (12.5-16.3); LYMPHOCYTES # (AUTO) 0.5 K/uL (20.0-40.0); LYMPHOCYTES % (AUTO) 7.5 % (20.5-51.5); MEAN CORPUSCULAR HEMOGLOBIN 26.8 uug (23.8-33.4); MEAN CORPUSCULAR HGB CONC 32 g/dL (32.5-36.3); MEAN CORPUSCULAR VOLUME 82.7 fL (73.0-96.2); MONOCYTES # (AUTO) 0.6 K/uL (2.0-10.0); MONOCYTES % (AUTO) 8.9 % (0.0-11.0); NEUTROPHILS # (AUTO) 5.1 K/uL (1.8-8.9); NEUTROPHILS % (AUTO) 79.9 % (38.5-71.5); PLATELET COUNT (AUTO) 192 K/uL (152-348); RED BLOOD CELL COUNT(AUTO) 3.67 MIL/uL (4.06-5.63); WHITE BLOOD COUNT (AUTO) 6.4 K/uL (3.6-10.2)
--- NOTE | 2019-08-24 07:30 | NUR ---
RECEIVED PATIENT IN BED AWAKE ALERT AND ORIENTED DENIES PAIN OR DISCOMFORTS AT THIS TIME REMAIN ON IVF AND IV ATB ORDERED WITH NO ADVERSE OR ALLERGIC REACTIONS AT THIS TIME.ON ROOM AIR WITH NO SOB CALL LIGHTS AND PERSONAL BELONGINGS ARE WITHIN EASY REACH MADE COMFORTABLE WILL CONTINUE TO OBSERVE.
[2019-08-24 07:36] LABS: CARBON DIOXIDE 33 mmol/L (21-32); CHLORIDE 105 mmol/L (98-107); CREATININE 2.2 mg/dL (0.6-1.3); GLUCOSE 106 mg/dL (74-106); MAGNESIUM 1.7 mg/dL (1.8-2.4); PHOSPHOROUS 3.1 mg/dL (2.5-4.9); POTASSIUM 3.5 mmol/L (3.5-5.1); UREA NITROGEN, BLOOD 70 mg/dL (7-18)
[2019-08-24 07:49] LABS: THYROID STIMULATING HORMONE 4.684 mIU/mL (0.358-3.740)
[2019-08-24 07:54] LABS: CHOLESTEROL 160 mg/dL (<200); HDL CHOLESTEROL 31 mg/dL (40-60); TRIGLYCERIDES 209 MG/DL (30-150)
[2019-08-24] MEDS: IV 1/2NS 1000 ML 1,000 ML IV PRN (08:21)
[2019-08-24] MEDS: AMIODARONE HCL 200 MG TABLET PO SCH (08:23)
[2019-08-24] MEDS: hydrALAZINE HCL 50 MG TABLET PO SCH ×2 (08:24→20:48)
[2019-08-24] MEDS: MULTIVITAMINS,THERAPEUTIC TABLET PO SCH (08:24)
[2019-08-24] MEDS: POTASSIUM CHLORIDE 20 MEQ TAB.PRT.SR PO SCH ×2 (08:24→20:48)
[2019-08-24] MEDS: ISOSORBIDE MONONITRATE 30 MG TAB.SR.24H PO SCH (08:24)
[2019-08-24] MEDS: FUROSEMIDE 40 MG TABLET PO SCH ×2 (08:24→17:16)
[2019-08-24] MEDS: CARVEDILOL 25 MG TABLET PO SCH ×2 (08:25→17:17)
[2019-08-24] MEDS: prednisoLONE ACET 1% OPHT DROP 5 ML BOTTLE EACHEYE PRN ×3 (08:28→21:03)
--- NOTE | 2019-08-24 08:31 | NUR ---
PATIENT REFUSED [facility] STATED TAKES AT NITE ONLY WILL CALL PHARMACY TO CHANGE TIMING TO BEDTIME DOSING
[2019-08-24] MEDS ORDERED: INSULIN GLARGINE,HUM 300 UNITS/3 ML CARTRIDGE SQ SCH ×2 (09:00→21:00)
[2019-08-24] MEDS ORDERED: ALLOPURINOL 100 MG TABLET PO SCH ×2 (09:00)
[2019-08-24] MEDS ORDERED: MAGNESIUM SULFATE/D5W 100 ML IV SCH (09:15)
--- NOTE | 2019-08-24 09:25 | NUR ---
MAG LEVEL IS 1.7 WITH REPLACEMENT ORDERS FROM ESTHER PAUL NP AND NOTED
[2019-08-24] MEDS: ALLOPURINOL 300 MG TABLET PO SCH (09:52)
[2019-08-24 11:27] VITALS: BP 110/50
[2019-08-24] MEDS: INSULIN REGULAR, HUMAN 300 UNIT/3 ML VIAL SQ PRN ×2 (12:06→16:39)
--- NOTE | 2019-08-24 14:50 | NUR ---
PATIENT COMPLAINING EYES ARE CRUSTY STICKY AND GLUED TOGHETER WANTS SOME OINTMENT SO NGOC PAUL CALLED WITH NEW ORDER AND NOTED.
[2019-08-24 15:57] VITALS: BP 120/56
[2019-08-24] MEDS: MINERAL OIL/PETROLAT OPHT OINT 3.5 GM TUBE EACHEYE PRN ×2 (16:11→21:47)
[2019-08-24] MEDS ORDERED: RIVAROXABAN 15 MG TABLET PO SCH (17:00)
[2019-08-24] MEDS: MONTELUKAST SODIUM 10 MG TABLET PO SCH (17:16)
--- NOTE | 2019-08-24 19:30 | NUR ---
RECEIVED PT AWAKE, ALERT AND ORIENTEDX4. PT IN NO ACUTE DISTRESS. IV INTACT. SAFETY AND COMFORT PROVIDED. ALL NEEDS ARE MET. WILL CONTINUE TO MONITOR.
[2019-08-24 20:31] VITALS: BP 116/59
[2019-08-24] MEDS: ATORVASTATIN 10 MG TABLET PO SCH (20:48)
[2019-08-24] MEDS: ZOLPIDEM 5 MG TABLET PO PRN (22:03)
[2019-08-25] MEDS: IV 1/2NS 1000 ML 1,000 ML IV PRN (00:46)
[2019-08-25] MEDS: PIPERACILLIN/TAZOBACTAM/D5W 3.375 G in IV DEXTROSE 5% 50 ML IV SCH ×2 (01:08→10:01)
--- NOTE | 2019-08-25 02:35 | NUR ---
HANDS OFF REPORT TO SUSIE MCMANUS. PT IN NO ACUTE DISTRESS. IV INTACT. SAFETY AND COMFORT PROVIDED. WILL CONTINUE TO MONITOR.
[2019-08-25 05:45] VITALS: BP 105/62
[2019-08-25 07:39] LABS: BASOPHILS % (AUTO) 0.8 % (0.0-2.0); EOSINOPHILS # (AUTO) 0.2 K/uL (0.0-0.7); EOSINOPHILS % (AUTO) 3.2 % (0.0-7.0); HEMATOCRIT 29.6 % (36.7-47.1); HEMOGLOBIN 9.6 g/dL (12.5-16.3); LYMPHOCYTES # (AUTO) 0.4 K/uL (20.0-40.0); LYMPHOCYTES % (AUTO) 7.2 % (20.5-51.5); MEAN CORPUSCULAR HEMOGLOBIN 26.8 uug (23.8-33.4); MEAN CORPUSCULAR HGB CONC 32 g/dL (32.5-36.3); MEAN CORPUSCULAR VOLUME 82.9 fL (73.0-96.2); MONOCYTES # (AUTO) 0.5 K/uL (2.0-10.0); MONOCYTES % (AUTO) 8.8 % (0.0-11.0); NEUTROPHILS # (AUTO) 4.1 K/uL (1.8-8.9); PLATELET COUNT (AUTO) 178 K/uL (152-348); RED BLOOD CELL COUNT(AUTO) 3.57 MIL/uL (4.06-5.63); WHITE BLOOD COUNT (AUTO) 5.2 K/uL (3.6-10.2)
--- NOTE | 2019-08-25 07:40 | NUR ---
RECEIVED PATIENT IN BED, AWAKE, AOX4. PATIENT DOES NOT HAVE IV ACCESS AT THIS TIME AND IS REFUSING TO HAVE ONE PUT IN UNTIL HE SPEAKS TO DOCTOR. DENIES PAIN OR SOB AT THIS TIME. IN NO DISTRESS. ALL NEEDS MET AT THIS TIME. SAFETY AND FALL PREVENTION IN PLACE. CALL LIGHT IN REACH. BED IN LOW POSITION AND LOCKED. WILL CONTINUE TO MONITOR.
[2019-08-25 07:55] LABS: CARBON DIOXIDE 31 mmol/L (21-32); CHLORIDE 106 mmol/L (98-107); CREATININE 2.3 mg/dL (0.6-1.3); GLUCOSE 100 mg/dL (74-106); MAGNESIUM 1.8 mg/dL (1.8-2.4); PHOSPHOROUS 3.6 mg/dL (2.5-4.9); POTASSIUM 2.9 mmol/L (3.5-5.1); UREA NITROGEN, BLOOD 67 mg/dL (7-18)
[2019-08-25] MEDS: BLOOD SUGAR DIAGNOSTIC 1 EACH STRIP VI SCH ×2 (08:12→12:29)
[2019-08-25 08:30] VITALS: BP 127/51
[2019-08-25] MEDS: ALLOPURINOL 300 MG TABLET PO SCH (08:33)
[2019-08-25] MEDS: AMIODARONE HCL 200 MG TABLET PO SCH (08:34)
[2019-08-25] MEDS: CARVEDILOL 25 MG TABLET PO SCH (08:34)
[2019-08-25] MEDS: POTASSIUM CHLORIDE 20 MEQ TAB.PRT.SR PO SCH (08:35)
[2019-08-25] MEDS: hydrALAZINE HCL 50 MG TABLET PO SCH (08:35)
[2019-08-25] MEDS: MULTIVITAMINS,THERAPEUTIC TABLET PO SCH (08:36)
[2019-08-25] MEDS: ISOSORBIDE MONONITRATE 30 MG TAB.SR.24H PO SCH (08:36)
[2019-08-25] MEDS: FUROSEMIDE 40 MG TABLET PO SCH (08:36)
[2019-08-25] MEDS ORDERED: POTASSIUM CHLORIDE 20 MEQ TAB.PRT.SR PO ONE (10:30)
[2019-08-25] MEDS ORDERED: PRED5DRO4 EACHEYE (11:47)
[2019-08-25] MEDS ORDERED: AZIT1PAC9 PO (11:47)
[2019-08-25] MEDS ORDERED: MINE3.5O EACHEYE (11:47)
[2019-08-25 12:00] VITALS: BP 126/64
[2019-08-25] MEDS: INSULIN REGULAR, HUMAN 300 UNIT/3 ML VIAL SQ PRN (12:30)
[2019-08-25] MEDS ORDERED: POTASSIUM CHLORIDE 10 MEQ TAB.PRT.SR PO ONE (13:00)
--- NOTE | 2019-08-25 16:49 | NUR ---
PATIENT DISCHARGED TO HOME-SELF CARE. DISCHARGE INSTRUCTIONS WENT OVER WITH PATIENT AND SIGNED. RX GIVEN TO PATIENT. PATIENT HAS GOOD UNDERSTANDING OF HEALTH AND KNOWS TO ORCHARD HAND THE MEDICATION FROM PHARMACY. BELONGINGS LIST SIGNED AND LEFT HOSPITAL VIA [employer]IV[employer] CAR WITH BELONGINGS. PATIENT DISCHARGED IN STABLE CONDITION. IV DISCONTINUED. ARM BAND TAKEN OFF PATIENT.
== END 2019-08-25 16:40 | disposition home or self-care (01) | DRG 194 ==
LOC: ER 09:44 → TELE3 15:57 → MEDSURG3 18:29
PROVIDERS: ADMIT Student in an Organized Health Care Education/Training Program; ATTEND Student in an Organized Health Care Education/Training Program
PROC: 5A09357 Assistance with Respiratory Ventilation, Less than 24 Consecutive Hours, Continuous Positive Airway Pressure (ICD-10-PCS; principal; 2019-08-23)
DX: J15.9 Unspecified bacterial pneumonia (principal); J44.0 Chronic obstructive pulmonary disease with (acute) lower respiratory infection; I13.0 Hypertensive heart and chronic kidney disease with heart failure and stage 1 through stage 4 chronic kidney disease, or unspecified chronic kidney disease; I48.20 Chronic atrial fibrillation, unspecified; I50.42 Chronic combined systolic (congestive) and diastolic (congestive) heart failure; I42.9 Cardiomyopathy, unspecified; D68.59 Other primary thrombophilia; N18.4 Chronic kidney disease, stage 4 (severe); E11.42 Type 2 diabetes mellitus with diabetic polyneuropathy; E11.22 Type 2 diabetes mellitus with diabetic chronic kidney disease; Z79.4 Long term (current) use of insulin; Z79.01 Long term (current) use of anticoagulants; Z95.810 Presence of automatic (implantable) cardiac defibrillator; H10.213 Acute toxic conjunctivitis, bilateral; L24.4 Irritant contact dermatitis due to drugs in contact with skin; T49.5X5A Adverse effect of ophthalmological drugs and preparations, initial encounter; Y92.019 Unspecified place in single-family (private) house as the place of occurrence of the external cause; G47.33 Obstructive sleep apnea (adult) (pediatric); G47.00 Insomnia, unspecified; N28.1 Cyst of kidney, acquired; N40.0 Benign prostatic hyperplasia without lower urinary tract symptoms; Z87.891 Personal history of nicotine dependence; Z79.899 Other long term (current) drug therapy; I27.20 Pulmonary hypertension, unspecified; E78.5 Hyperlipidemia, unspecified; M10.9 Gout, unspecified; M19.90 Unspecified osteoarthritis, unspecified site
CPT/HCPCS: 36415; 70030-TC; 71045; 76770; 83605; 83735; 84100; 84443; 85025; 85730; 87040; 87086; 93005; A4663; G0378; J1200; J1815; J2543; J2650; J3475; J3490; J7050; J7060

== ENCOUNTER 2019-12-06 11:55 | Inpatient (IN) | payer BC, MEDICARE ==
[~2019-12-06] VITALS: Ht 175.3 cm; Wt 96.3 kg
[~2019-12-06 11:55] MED LIST changes: -ALFU10TA10 PO; +AZIT1PAC9 PO; -DIGOXIN PO; +FURO80TA3 PO; -GLIM1TAB18 PO; +HYDR-4077 PO; +ISOS30TA6 PO; +MINE3.5O EACHEYE; -Metolazone PO; +PRED5DRO4 EACHEYE
--- NOTE | 2019-12-06 12:14 | NUR ---
Dr Fall at the bedside for MSE.
[2019-12-06 13:02] LABS: BASOPHILS % (AUTO) 0.7 % (0.0-2.0); CARBON DIOXIDE 30 mmol/L (21-32); CHLORIDE 105 mmol/L (98-107); CREATININE 2.7 mg/dL (0.6-1.3); EOSINOPHILS # (AUTO) 0.1 K/uL (0.0-0.7); EOSINOPHILS % (AUTO) 2.2 % (0.0-7.0); GLUCOSE 157 mg/dL (74-106); HEMATOCRIT 28.1 % (36.7-47.1); LYMPHOCYTES # (AUTO) 0.3 K/uL (20.0-40.0); LYMPHOCYTES % (AUTO) 5.9 % (20.5-51.5); MEAN CORPUSCULAR HGB CONC 32 g/dL (32.5-36.3); MONOCYTES # (AUTO) 0.3 K/uL (2.0-10.0); MONOCYTES % (AUTO) 6.3 % (0.0-11.0); NEUTROPHILS # (AUTO) 4.3 K/uL (1.8-8.9); NEUTROPHILS % (AUTO) 84.9 % (38.5-71.5); PLATELET COUNT (AUTO) 202 K/uL (152-348); POTASSIUM 3.9 mmol/L (3.5-5.1); RED BLOOD CELL COUNT(AUTO) 3.47 MIL/uL (4.06-5.63)
[2019-12-06 13:07] LABS: UREA NITROGEN, BLOOD 109 mg/dL (7-18)
[2019-12-06 13:16] LABS: ALANINE AMINOTRANSFERASE 18 U/L (16-63); ALKALINE PHOSPHATASE 157 U/L (50-136); ASPARTATE AMINOTRANSFERASE 36 U/L (15-37); BILIRUBIN,DIRECT 0.1 mg/dL (0.0-0.2); BILIRUBIN,TOTAL 0.2 mg/dL (0.2-1.0); TOTAL PROTEIN, SERUM 4.7 g/dL (6.4-8.2)
[2019-12-06] MEDS ORDERED: VANCOMYCIN IV 1,000 MG in IV DEXTROSE 5% 250 ML IV ONE (13:30)
[2019-12-06] MEDS ORDERED: VANCOMYCIN IV 200 ML ONE (13:35)
[2019-12-06] MEDS ORDERED: FUROSEMIDE 20 MG/2 ML VIAL ONE (13:40)
[2019-12-06] MEDS ORDERED: FUROSEMIDE 20 MG/2 ML VIAL IV ONE (13:45)
[2019-12-06 16:45] VITALS: BP 118/52
[2019-12-06] MEDS ORDERED: MIRALAX 17 GM POWD.PACK PO PRN (19:00)
[2019-12-06] MEDS ORDERED: ACETAMINOPHEN 325 MG TABLET PO PRN (19:00)
[2019-12-06] MEDS ORDERED: MINERAL OIL/PETROLAT OPHT OINT 3.5 GM TUBE EACHEYE PRN (19:00)
[2019-12-06] MEDS ORDERED: ONDANSETRON 4 MG/2 ML VIAL IV PRN (19:00)
[2019-12-06] MEDS ORDERED: diphenhydrAMINE 50 MG/1 ML VIAL IV PRN (19:00)
--- NOTE | 2019-12-06 19:06 | NUR ---
patient received at 1700 from ER, Md cano made aware of patients arrival on unit, on contact isolation for possible covid rule out, vitals, 118/52, 100% RA, 97.6 temp, 60 HR, 18, all needs met at this time
[2019-12-06] MEDS: ATORVASTATIN 10 MG TABLET PO SCH (20:27)
[2019-12-06] MEDS: DOCUSATE SODIUM 100 MG CAPSULE PO SCH (20:27)
[2019-12-06] MEDS: MORPHINE SULFATE 2 MG/1 ML DISP.SYRIN IV PRN (20:35)
--- NOTE | 2019-12-06 20:36 | NUR ---
PHARMACY CLINICAL NOTES (VANCOMYCIN DOSING) S: 69 YO male with DX of Cellulitis,on Vancomycin and Zosyn O: BUN/SCR 109/2.7, WBC 5.0 , TEMP 97.6, DOSING WT 215 LBS A/P: pt has received Vancomycin 1000 mg in ER @ 1330. Will dose Vancomycin by fall of levels. Ordered Vancomycin level by 1300 tomorrow and will decided on dosing based on level and renal fxn. Will continue to follow up Addendum: 12/06/19 at 2047 by GABINO SMITH SINCE ALL OTHER ORDERS WERE ORDERED FOR 12/07/19 @ 0600 AND WE ARE TRYING TO MINIMIZE STAFF'S EXPOSURE TO PUI PATENTS WILL CHANGE TIME OF VANCOMYCIN LEVEL TO 0600 AM.
[2019-12-06 20:47] VITALS: BP 115/64
[2019-12-06] MEDS ORDERED: RIVAROXABAN 10 MG TABLET PO SCH (21:00)
[2019-12-06] MEDS ORDERED: KLOR CON 20 MEQ PO SCH (21:00)
[2019-12-06] MEDS: MONTELUKAST SODIUM 10 MG TABLET PO SCH (21:26)
[2019-12-06] MEDS: PIPERACILLIN/TAZOBACTAM/D5W 3.375 G in IV DEXTROSE 5% 50 ML IV SCH (21:27)
[2019-12-07] VITALS: BP 125/64
[2019-12-07] MEDS ORDERED: PIPERACILLIN/TAZO 2.25 G in IV DEXTROSE 5% 50 ML IV SCH ×2
[2019-12-07 03:31] LABS: *BILIRUBIN,URIN NEGATIVE (NEGATIVE); *BLOOD, URINE NEGATIVE (NEGATIVE); *CLARITY,URINE CLEAR (CLEAR); *COLOR,URINE YELLOW (YELLOW); *KETONES,URINE NEGATIVE (NEGATIVE); *UROBILINOGEN,URINE 0.2 E.U./dl (NORMAL); LEUKOCYTE ESTERASE ,URINE NEGATIVE (NEGATIVE); NITRITE, URINE NEGATIVE (NEGATIVE); UGLUCOSE NEGATIVE (NEGATIVE)
[2019-12-07 03:45] LABS: *CREATININE,URINE 44.7 mg/dL (30-125); *URINE TOTAL PROTEIN RANDOM 7.9 mg/dL (<150/24HR)
[2019-12-07 04:00] VITALS: BP 125/72
--- NOTE | 2019-12-07 06:21 | NUR ---
Patient slept well. No SOB noted, saturating at 98% on RA. Medicated w/ PRN Morphine 2mg IV x 1 for LLE pain. Afebrile this shift. IV on RAC 20g intact and patent. On contact and droplet isolation for r/o covid. All needs attended. Will endorse accordingly
[2019-12-07] MEDS: MULTIVITAMINS,THERAPEUTIC TABLET PO SCH (08:58)
[2019-12-07] MEDS: PANTOPRAZOLE SODIUM 40 MG TABLET.DR PO SCH (08:58)
[2019-12-07] MEDS ORDERED: POTASSIUM CHLORIDE 20 MEQ TAB.PRT.SR PO SCH (09:00)
[2019-12-07] MEDS ORDERED: FUROSEMIDE 20 MG/2 ML VIAL IV SCH (09:00)
[2019-12-07] MEDS ORDERED: CENTRUM SILVER PO SCH (09:00)
[2019-12-07] MEDS ORDERED: ISOSORBIDE MONONITRATE 30 MG TAB.SR.24H PO SCH (09:00)
[2019-12-07] MEDS: PROTEIN SUPPLEMENT (PROSTAT) 30 ML LIQUID PO SCH ×3 (09:01→17:40)
[2019-12-07] MEDS: PIPERACILLIN/TAZOBACTAM/D5W 3.375 G in IV DEXTROSE 5% 50 ML IV SCH ×2 (09:04→12:25)
[2019-12-07] MEDS: AMIODARONE HCL 200 MG TABLET PO SCH (09:55)
[2019-12-07 12:00] VITALS: BP 132/53
[2019-12-07] MEDS ORDERED: BUMETANIDE INJ 4 MG in IV DEXTROSE 5% 24 ML IV ONE (15:00)
[2019-12-07 16:00] VITALS: BP 133/56
--- NOTE | 2019-12-07 18:30 | NUR ---
Patient remains alert, oriented x 4, not in any form of distress, on room air during the shift. He denies any pain or discomfort. All due medications administered and tolerated well. Assisted with his needs promptly. Peripheral IV line on right AC, intact and patent. Call light and frequently used items placed within reach. Safety measures maintained. Will endorse accordingly to operation shift supervisor nurse.
--- NOTE | 2019-12-07 20:30 | NUR ---
Patient transferred from 2nd floor. Patient alert and awake. Patient denies any SOB or respiratory distress. Patient denies any pain. Patients left leg swollen. Belonging list reviewed. Safety measures in place. Will continue with the plan of care.
[2019-12-07 20:59] VITALS: BP 129/61
[2019-12-07] MEDS ORDERED: RIVAROXABAN 15 MG TABLET PO SCH (21:00)
[2019-12-07] MEDS ORDERED: RIVAROXABAN 10 MG TABLET PO SCH (21:00)
[2019-12-07] MEDS: DOCUSATE SODIUM 100 MG CAPSULE PO SCH (21:31)
[2019-12-07] MEDS: ATORVASTATIN 10 MG TABLET PO SCH (21:31)
[2019-12-07] MEDS: MONTELUKAST SODIUM 10 MG TABLET PO SCH (21:31)
[2019-12-07] MEDS: CLINDAMYCIN PHOSPHATE IV 600 MG in IV DEXTROSE 5% 100 ML IV SCH (21:31)
[2019-12-07] MEDS: ISOSORBIDE DINITRATE 10 MG TABLET PO SCH (21:32)
[2019-12-07] MEDS: hydrALAZINE HCL 10 MG TABLET PO SCH (21:33)
[2019-12-07] MEDS ORDERED: RIVAROXABAN 15 MG TABLET ONE (22:05)
[2019-12-07] MEDS: MORPHINE SULFATE 2 MG/1 ML DISP.SYRIN IV PRN (22:15)
[2019-12-08 00:57] VITALS: BP 120/68
[2019-12-08 04:00] VITALS: BP 126/64
[2019-12-08] MEDS: ISOSORBIDE DINITRATE 10 MG TABLET PO SCH (05:24)
[2019-12-08] MEDS: hydrALAZINE HCL 10 MG TABLET PO SCH (05:24)
--- NOTE | 2019-12-08 06:24 | NUR ---
Pt in bed resting, in no acute signs of distress, No c/o pain. No BM during shift, Miralax given. Bed alarm on for safety.
--- NOTE | 2019-12-08 08:00 | NUR ---
patient is awake alert. currently on own cpap machine. patient states settings are 8/12. patient removes for breakfast.
[2019-12-08 08:04] VITALS: BP 123/52
[2019-12-08] MEDS: MULTIVITAMINS,THERAPEUTIC TABLET PO SCH (08:17)
[2019-12-08] MEDS: PROTEIN SUPPLEMENT (PROSTAT) 30 ML LIQUID PO SCH (08:18)
[2019-12-08] MEDS: CLINDAMYCIN PHOSPHATE IV 600 MG in IV DEXTROSE 5% 100 ML IV SCH (08:18)
[2019-12-08] MEDS: PANTOPRAZOLE SODIUM 40 MG TABLET.DR PO SCH (08:18)
[2019-12-08] MEDS: AMIODARONE HCL 200 MG TABLET PO SCH (09:00)
--- NOTE | 2019-12-08 09:00 | NUR ---
patient ambulates with PT at this time and tolerates very well.
--- NOTE | 2019-12-08 10:30 | NUR ---
magalys in the unit to see patient. will be discharging him today.
[2019-12-08] MEDS ORDERED: CLIN300C11 PO (10:57)
--- NOTE | 2019-12-08 11:20 | NUR ---
patient unable to be discharged without any laboratory results. patient has been refusing lab draws and patient is not yet cleared by cardiology per dada. patient wants to leave AMA. patient signed form and personal belongings. IV discontinued with IV site reinforcement of bandage for bleeding. no more bleeding with reinforcement. patient taken down to lobby by nurses aide.
== END 2019-12-08 11:35 | disposition left against medical advice (07) | DRG 602 ==
LOC: ER 11:55 → TELE 14:53 → TELE3 12-07 20:30
PROVIDERS: ADMIT Internal Medicine; ATTEND Hospitalist
DX: L03.116 Cellulitis of left lower limb (principal); I50.43 Acute on chronic combined systolic (congestive) and diastolic (congestive) heart failure; N17.0 Acute kidney failure with tubular necrosis; E43 Unspecified severe protein-calorie malnutrition; I13.0 Hypertensive heart and chronic kidney disease with heart failure and stage 1 through stage 4 chronic kidney disease, or unspecified chronic kidney disease; J96.11 Chronic respiratory failure with hypoxia; I48.20 Chronic atrial fibrillation, unspecified; I42.8 Other cardiomyopathies; D68.69 Other thrombophilia; J90 Pleural effusion, not elsewhere classified; E11.22 Type 2 diabetes mellitus with diabetic chronic kidney disease; N18.9 Chronic kidney disease, unspecified; D50.9 Iron deficiency anemia, unspecified; Z79.4 Long term (current) use of insulin; Z87.891 Personal history of nicotine dependence; Z79.01 Long term (current) use of anticoagulants; I87.2 Venous insufficiency (chronic) (peripheral); G47.33 Obstructive sleep apnea (adult) (pediatric); I27.20 Pulmonary hypertension, unspecified; E88.09 Other disorders of plasma-protein metabolism, not elsewhere classified; Z68.31 Body mass index [BMI] 31.0-31.9, adult; E83.9 Disorder of mineral metabolism, unspecified; Z95.810 Presence of automatic (implantable) cardiac defibrillator; Z86.74 Personal history of sudden cardiac arrest; E11.42 Type 2 diabetes mellitus with diabetic polyneuropathy; E66.3 Overweight; I25.10 Atherosclerotic heart disease of native coronary artery without angina pectoris; J44.9 Chronic obstructive pulmonary disease, unspecified; N40.0 Benign prostatic hyperplasia without lower urinary tract symptoms; Z91.19 Patient's noncompliance with other medical treatment and regimen; Z91.81 History of falling
CPT/HCPCS: 36415; 70030-TC; 71045; 73590; 73610; 83605; 84156; 84300; 85025; 85730; 87040; 93005; 93307; A4663; G0378; J1940; J2270; J2543; J3370; J3490; J7030; J7060

== ENCOUNTER 2021-05-16 09:38 | Inpatient (IN) | payer BC, MEDICARE ==
[~2021-05-16] VITALS: Ht 175.3 cm; Wt 81.6 kg
[~2021-05-16 09:38] MED LIST changes: -ALLO100T PO; -AMIO200T4 PO; +AMIO200T5 PO; -AZIT1PAC9 PO; +CLIN300C12 PO; -ISOS30TA6 PO; +ISOS30TA86 PO
[2021-05-16 10:18] LABS: *OCCULT BLOOD STOOL NEGATIVE (NEGATIVE)
[2021-05-16 10:29] LABS: HEMATOCRIT 30.7 % (36.7-47.1); MEAN CORPUSCULAR VOLUME 84.6 fL (73.0-96.2); PLATELET COUNT (AUTO) 152 K/uL (152-348)
[2021-05-16 10:30] LABS: *BILIRUBIN,URIN NEGATIVE (NEGATIVE); *BLOOD, URINE NEGATIVE (NEGATIVE); *CLARITY,URINE CLEAR (CLEAR); *COLOR,URINE YELLOW (YELLOW); *KETONES,URINE NEGATIVE (NEGATIVE); *UROBILINOGEN,URINE 0.2 E.U./dl (NORMAL); LEUKOCYTE ESTERASE ,URINE NEGATIVE (NEGATIVE); NITRITE, URINE NEGATIVE (NEGATIVE); PH,URINE 5.5 (5.0-8.0); UGLUCOSE NEGATIVE (NEGATIVE)
--- NOTE | 2021-05-16 10:38 | NUR ---
Patient was seen by MD. IV placed, labs placed, hes on a monitor. covid and urine tests sent to lab
[2021-05-16 10:42] LABS: ALANINE AMINOTRANSFERASE 53 U/L (16-63); ALKALINE PHOSPHATASE 196 U/L (50-136); ASPARTATE AMINOTRANSFERASE 37 U/L (15-37); BILIRUBIN,DIRECT 0.1 mg/dL (0.0-0.2); BILIRUBIN,TOTAL 0.5 mg/dL (0.2-1.0); CARBON DIOXIDE 31 mmol/L (21-32); CHLORIDE 101 mmol/L (98-107); CREATININE 3.1 mg/dL (0.6-1.3); GLUCOSE 164 mg/dL (74-106); LIPASE 509 U/L (73-393); POTASSIUM 3.2 mmol/L (3.5-5.1); TOTAL PROTEIN, SERUM 7.4 g/dL (6.4-8.2)
[2021-05-16 10:46] LABS: UREA NITROGEN, BLOOD 87 mg/dL (7-18)
--- NOTE | 2021-05-16 14:38 | NUR ---
Patient ate lunch. Awaiting for a bed to be available on 3rd floor. Denies pain or any other symptoms
[2021-05-16] MEDS ORDERED: POTASSIUM CHLORIDE 20 MEQ TAB.PRT.SR PO ONE (15:45)
[2021-05-16] MEDS ORDERED: POTASSIUM CHLORIDE 20 MEQ TAB.PRT.SR ONE (15:54)
--- NOTE | 2021-05-16 15:55 | NUR ---
Awaiting for bed availability on 3rd floor. Patient is awake and alert with no new complaints. Denies blood in stool with last BM in ER
--- NOTE | 2021-05-16 17:10 | NUR ---
Report given to Brit MCMANUS. Patient is sitting up drinking coffee.
[2021-05-16] MEDS ORDERED: HYDROCODONE/APAP 5-325MG TABLET PO PRN (17:30)
[2021-05-16] MEDS ORDERED: ONDANSETRON 4 MG/2 ML VIAL IV PRN (17:30)
[2021-05-16] MEDS ORDERED: IV NS 1000 ML 1,000 ML IV ONE (17:45)
--- NOTE | 2021-05-16 17:54 | NUR ---
admitted from home via er a 70 yo male with adm dx of GIB, awake alert and oriented x3. denies pain or sob. no signs of bleeding upon arrival on the floor. adm orders revieved and carried. V-PACED on monitor
[2021-05-16 18:00] VITALS: BP 129/52
[2021-05-16] MEDS: PANTOPRAZOLE SODIUM 40 MG VIAL IV SCH (18:04)
[2021-05-16] MEDS ORDERED: FUROSEMIDE 40 MG TABLET PO SCH (20:00)
[2021-05-16] MEDS ORDERED: DEXTROSE 50% 50 ML DISP.SYRIN IV PRN (20:00)
[2021-05-16 20:15] VITALS: BP 112/45
[2021-05-16] MEDS: INSULIN REGULAR, HUMAN 300 UNIT/3 ML VIAL SQ PRN (20:28)
[2021-05-16] MEDS: BLOOD SUGAR DIAGNOSTIC 1 EACH STRIP VI SCH (20:32)
[2021-05-16] MEDS: CARVEDILOL 25 MG TABLET PO SCH (20:35)
[2021-05-16] MEDS ORDERED: ATORVASTATIN 10 MG TABLET PO SCH (21:00)
[2021-05-16] MEDS ORDERED: MONTELUKAST SODIUM 10 MG TABLET PO SCH (21:00)
[2021-05-17] VITALS: BP 123/52
--- NOTE | 2021-05-17 00:15 | NUR ---
Patient aware of kidney problems and would like to talk to Doctor Dex about this issue. Education about daily rounds with assigned MD. Bg Anna RN
--- NOTE | 2021-05-17 02:34 | NUR ---
Patient refuses saline liter x1. Saline lock on left hand 20 gauge. Says it is tender. Declines intravenous saline lock site change. Bg Anna RN
[2021-05-17 03:24] LABS: *OCCULT BLOOD STOOL POSITIVE (NEGATIVE)
[2021-05-17 03:39] LABS: *CREATININE,URINE 72.3 mg/dL (30-125); *URINE TOTAL PROTEIN RANDOM 21.1 mg/dL (<150/24HR)
[2021-05-17 04:15] VITALS: BP 129/65
[2021-05-17 05:15] VITALS: BP 129/65
[2021-05-17 06:33] LABS: HEMATOCRIT 28.4 % (36.7-47.1); MEAN CORPUSCULAR HEMOGLOBIN 27.6 uug (23.8-33.4); MEAN CORPUSCULAR VOLUME 85.1 fL (73.0-96.2); PLATELET COUNT (AUTO) 121 K/uL (152-348)
[2021-05-17 06:51] LABS: CARBON DIOXIDE 29 mmol/L (21-32); CHLORIDE 106 mmol/L (98-107); CHOLESTEROL 122 mg/dL (<200); CREATININE 2.8 mg/dL (0.6-1.3); GLUCOSE 138 mg/dL (74-106); HDL CHOLESTEROL 28 mg/dL (40-60); MAGNESIUM 2.3 mg/dL (1.8-2.4); PHOSPHOROUS 3.4 mg/dL (2.5-4.9); TRIGLYCERIDES 163 MG/DL (30-150)
[2021-05-17] MEDS: BLOOD SUGAR DIAGNOSTIC 1 EACH STRIP VI SCH ×2 (07:06→12:48)
--- NOTE | 2021-05-17 07:19 | NUR ---
Handoff with MARIETTA Clinton. Bg Anna RN
--- NOTE | 2021-05-17 08:00 | NUR ---
report received from slot shift manager, pt a/ox4, room air, no signs of distress, no reports of pain. pt cooperative and pleasant. pt on tele monitor, NSR. pt ambulatory, urinal at bedside, renal diet. pt has left hand 20g, patent, intact. bed low and locked, call light within reach, will continue with plan of care.
[2021-05-17 08:39] LABS: UREA NITROGEN, BLOOD 85 mg/dL (7-18)
[2021-05-17] MEDS ORDERED: FUROSEMIDE 40 MG TABLET PO SCH (09:00)
[2021-05-17] MEDS ORDERED: AMIODARONE HCL 200 MG TABLET PO SCH (09:00)
[2021-05-17] MEDS ORDERED: hydrALAZINE HCL 50 MG TABLET PO SCH (09:00)
[2021-05-17] MEDS ORDERED: ISOSORBIDE MONONITRATE 30 MG TAB.SR.24H PO SCH (09:00)
[2021-05-17 09:57] VITALS: BP 122/41
[2021-05-17] MEDS: CARVEDILOL 25 MG TABLET PO SCH (10:00)
[2021-05-17] MEDS: PANTOPRAZOLE SODIUM 40 MG VIAL IV SCH (10:01)
[2021-05-17 11:03] VITALS: BP 122/41
[2021-05-17] MEDS ORDERED: HYDR28.316 RC (12:22)
[2021-05-17] MEDS: INSULIN REGULAR, HUMAN 300 UNIT/3 ML VIAL SQ PRN (12:49)
--- NOTE | 2021-05-17 14:15 | NUR ---
pt discharged with all belongings, education information provided, follow up instructions given to pt. pt and brother at bedside verbalized understanding. belongings list signed, leaving via private car with brother. pt left with all questions addressed.
== END 2021-05-17 14:15 | disposition home or self-care (01) | DRG 393 ==
LOC: ER 09:38 → TELE3 17:27
PROVIDERS: ADMIT Nurse Practitioner Family; ATTEND Nurse Practitioner Family
DX: K64.9 Unspecified hemorrhoids (principal); N17.0 Acute kidney failure with tubular necrosis; I13.0 Hypertensive heart and chronic kidney disease with heart failure and stage 1 through stage 4 chronic kidney disease, or unspecified chronic kidney disease; E11.22 Type 2 diabetes mellitus with diabetic chronic kidney disease; N18.9 Chronic kidney disease, unspecified; I50.9 Heart failure, unspecified; Z79.4 Long term (current) use of insulin; E78.5 Hyperlipidemia, unspecified; E83.19 Other disorders of iron metabolism; E87.6 Hypokalemia; I48.91 Unspecified atrial fibrillation; Z87.891 Personal history of nicotine dependence; Z79.01 Long term (current) use of anticoagulants; N40.0 Benign prostatic hyperplasia without lower urinary tract symptoms; Z20.822 Contact with and (suspected) exposure to COVID-19; D64.9 Anemia, unspecified; R74.8 Abnormal levels of other serum enzymes; Z95.810 Presence of automatic (implantable) cardiac defibrillator; K59.00 Constipation, unspecified
CPT/HCPCS: 36415; 71045; 76770; 83690; 83735; 83970; 84100; 84153; 84156; 85025; 85730; 86850; 86900; 86901; 93005; A4663; C9113; G0378; J1815

== ENCOUNTER 2021-12-17 18:17 | Emergency (ER) | payer BC, MEDICARE ==
[~2021-12-17 18:17] MED LIST changes: -CLIN300C12 PO; +HYDR28.316 RC; -MINE3.5O EACHEYE; -PRED5DRO4 EACHEYE
--- NOTE | 2021-12-17 19:20 | NUR ---
Patient went up to registration window and states "I am leaving, I don't want to wait anymore."
--- NOTE | 2021-12-17 19:20 | NUR ---
Saeed alejo in [facility] - 12/17/21 at 2101 by [email or web address] Patient went up to registration window and states "I am leaving, I don't want to wait anymore."
== END 2021-12-17 19:30 | disposition left against medical advice (07) ==
LOC: ER 18:19
DX: Z53.21 Procedure and treatment not carried out due to patient leaving prior to being seen by health care provider (principal)

== ENCOUNTER 2021-12-19 10:00 | Emergency (ER) | payer BC, MEDICARE ==
[~2021-12-19] VITALS: Ht 175.3 cm; Wt 70.3 kg
[2021-12-19] MEDS ORDERED: SULFAMETH/TRIMETH 800/160 MG TABLET PO ONE (10:30)
[2021-12-19] MEDS ORDERED: CEphaleXIN 500 MG CAPSULE PO ONE (10:30)
[2021-12-19] MEDS ORDERED: TDAP DIPH,PERTUSS,TET VAC/PF 0.5 ML DISP.SYRIN IM ONE ×2 (10:30→10:46)
[2021-12-19] MEDS ORDERED: CEphaleXIN 500 MG CAPSULE ONE ×2 (10:45→10:54)
[2021-12-19] MEDS ORDERED: HYDROCODONE/APAP 10-325 MG TABLET ONE ×2 (10:45→10:53)
[2021-12-19] MEDS ORDERED: HYDROCODONE/APAP 10-325 MG TABLET PO ONE (10:45)
[2021-12-19] MEDS ORDERED: SULFAMETH/TRIMETH 800/160 MG TABLET ONE ×2 (10:45→10:54)
--- NOTE | 2021-12-19 11:00 | NUR ---
PT IS IN ROOM #2B. DR NAVAS EVALUATED THE PT.
[2021-12-19] MEDS ORDERED: CEPH500C2 PO (11:14)
[2021-12-19] MEDS ORDERED: SULF1TAB48 PO (11:14)
[2021-12-19] MEDS ORDERED: HYDR-3980 PO (11:14)
[2021-12-19] MEDS ORDERED: DOCU250C14 PO (11:14)
--- NOTE | 2021-12-19 11:43 | NUR ---
PT WAS D/C'd TO HOME. D/C INSTRUCTIONS GIVEN TO THE PT BY DR NAVAS.
[2021-12-19 11:45] VITALS: BP 132/81
== END 2021-12-19 11:46 | disposition home or self-care (01) ==
LOC: ER 10:00
DX: S61.303A Unspecified open wound of left middle finger with damage to nail, initial encounter (principal); L03.012 Cellulitis of left finger; I13.0 Hypertensive heart and chronic kidney disease with heart failure and stage 1 through stage 4 chronic kidney disease, or unspecified chronic kidney disease; E11.22 Type 2 diabetes mellitus with diabetic chronic kidney disease; N18.9 Chronic kidney disease, unspecified; I50.9 Heart failure, unspecified; I48.91 Unspecified atrial fibrillation; J44.9 Chronic obstructive pulmonary disease, unspecified; E78.5 Hyperlipidemia, unspecified; M10.9 Gout, unspecified; F17.210 Nicotine dependence, cigarettes, uncomplicated; Z86.2 Personal history of diseases of the blood and blood-forming organs and certain disorders involving the immune mechanism; Z79.899 Other long term (current) drug therapy; Z79.4 Long term (current) use of insulin; X58.XXXA Exposure to other specified factors, initial encounter; Y93.89 Activity, other specified; Y92.89 Other specified places as the place of occurrence of the external cause; Y99.8 Other external cause status
CPT/HCPCS: 90715; A4663

== ENCOUNTER 2021-12-19 23:31 | Emergency (ER) | payer BC, MEDICARE ==
[~2021-12-19] VITALS: Ht 175.3 cm; Wt 70.3 kg
[~2021-12-19 23:31] MED LIST changes: +CEPH500C2 PO; +DOCU250C14 PO; +HYDR-3980 PO; +SULF1TAB48 PO
[2021-12-20] MEDS ORDERED: IV NS 1000 ML 1,000 ML IV ONE (00:45)
[2021-12-20 02:00] VITALS: BP 131/65
--- NOTE | 2021-12-20 02:00 | NUR ---
Patient discharged to home in stable condition. Written and verbal after care instructions given. Patient verbalizes understanding of instructions. Stressed follow up or return to ER for worsening s/s. pt's laceration dressed with gauze and tape
== END 2021-12-20 02:01 | disposition home or self-care (01) ==
LOC: ER 23:33
DX: S61.303D Unspecified open wound of left middle finger with damage to nail, subsequent encounter (principal); L03.012 Cellulitis of left finger; X58.XXXD Exposure to other specified factors, subsequent encounter; I48.91 Unspecified atrial fibrillation; J44.9 Chronic obstructive pulmonary disease, unspecified; F17.210 Nicotine dependence, cigarettes, uncomplicated; I13.0 Hypertensive heart and chronic kidney disease with heart failure and stage 1 through stage 4 chronic kidney disease, or unspecified chronic kidney disease; E11.22 Type 2 diabetes mellitus with diabetic chronic kidney disease; N18.9 Chronic kidney disease, unspecified; E78.5 Hyperlipidemia, unspecified; Z79.899 Other long term (current) drug therapy; Z79.01 Long term (current) use of anticoagulants; Z79.4 Long term (current) use of insulin; Z95.810 Presence of automatic (implantable) cardiac defibrillator
CPT/HCPCS: A4663